=== PATIENT | male | born 2000 | race Hispanic/Latino ===

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

== ENCOUNTER 2018-01-09 16:19 | Emergency (ER) | payer SELFPAY ==
[2018-01-09] MEDS ORDERED: MAGNE/ALUM HYDROXD 30 ML UCUP ONE (17:00)
[2018-01-09] MEDS ORDERED: LIDOCAINE VISCOUS 2% SOLN 15 ML UDC ONE (17:01)
[2018-01-09] MEDS ORDERED: SUCRALFATE 1 GM TABLET ONE (17:20)
--- NOTE | 2018-01-09 17:32 | RAD REPORT ---
EXAM DESCRIPTION: Tushar Patel (2 Views)01/09/2018 5:25 pm CLINICAL HISTORY: Abdominal pain COMPARISON: 2017 FINDINGS: The lungs appear clear of acute infiltrate. The heart is normal size. Free air is not see n beneath the diaphragm . If patient has significant abdominal pain CT would be recommended IMPRESSION: No acute abnormalities displayed
--- NOTE | 2018-01-09 17:41 | ER ---
Nurse's Notes [facility] Name: Robert Womack Jr Age: 17 yrs Sex: Male : 2000 Arrival Date: 01/09/2018 Time: 16:23 Bed 18 Private MD: Diagnosis: Epigastric pain Presentation: 01/09 16:36 Presenting complaint: Patient states: LUQ pain that is worse when taking a deep breath, aj that started this AM. Denies fever. Transition of care: patient was not received from another setting of care. Onset of symptoms was January 09, 2018. Risk Assessment: Do you want to hurt yourself or someone else? Patient reports no desire to harm self or others. Initial Sepsis Screen: Does the patient meet any 2 criteria? No. Patient's initial sepsis screen is negative. Does the patient have a suspected source of infection? No. Patient's initial sepsis screen is negative. Care prior to arrival: None. 16:36 Method Of Arrival: Ambulatory aj 16:36 Acuity: KAT 4 aj Triage Assessment: 16:37 General: Appears in no apparent distress. comfortable, Behavior is calm, cooperative, aj appropriate for age. Pain: Complains of pain in left upper quadrant. Neuro: Level of Consciousness is awake, alert, obeys commands, Oriented to person, place, time, situation, Appropriate for age. Respiratory: Airway is patent Respiratory effort is even, unlabored, Respiratory pattern is regular, symmetrical. GI: Abdomen is flat, Reports upper abdominal pain. Derm: Skin is intact, is healthy with good turgor, Skin is pink, warm \T\ dry. normal. Musculoskeletal: Range of motion: intact in all extremities, Reports pain in left upper quadrant. Historical: - Allergies: 16:37 No Known Allergies; aj - Home Meds: 16:37 None [Active]; aj - PMHx: 16:37 None; aj - PSHx: 16:37 Appendectomy; aj - Immunization history:: Adult Immunizations up to date. - Social history:: Smoking status: Patient/guardian denies using tobacco. - Ebola Screening: : Patient negative for fever greater than or equal to 101.5 degrees Fahrenheit, and additional compatible Ebola Virus Disease symptoms Patient denies exposure to infectious person Patient denies travel to an Ebola-affected area in the 21 days before illness onset No symptoms or risks identified at this time. Screenin:45 Abuse screen: Denies threats or abuse. Denies injuries from another. Nutritional jl7 screening: No deficits noted. Tuberculosis screening: No symptoms or risk factors identified. Fall Risk None identified. Assessment: 16:45 General: Appears in no apparent distress. uncomfortable, Behavior is calm, cooperative, jl7 appropriate for age. Pain: Complains of pain in left upper quadrant Pain does not radiate. Pain currently is 8 out of 10 on a pain scale. Quality of pain is described as gnawing, Is continuous. Neuro: Level of Consciousness is awake, alert, obeys commands, Oriented to person, place, time, situation. Cardiovascular: Patient's skin is warm and dry. Respiratory: Airway is patent Respiratory effort is even, unlabored, Respiratory pattern is regular, symmetrical. GI: Abdomen is flat, non-distended, Stools are reported to be constipated. Bowel sounds present X 4 quads. Abd is soft X 4 quads Abd is non tender in right upper quadrant, right lower quadrant and left lower quadrant Abdomen is tender to palpation in left upper quadrant. : No signs and/or symptoms were reported regarding the genitourinary system. EENT: No signs and/or symptoms were reported regarding the EENT system. Derm: Skin is. Musculoskeletal: No signs and/or symptoms reported regarding the musculoskeletal system. 17:15 Reassessment: Pt reports slight decrease in pain, rated 6/10 at this time. jl7 Vital Signs: 16:37 BP 103 / 69; Pulse 84; Resp 19; Temp 98.6; Pulse Ox 99% on R/A; Weight 63.96 kg; Height aj 5 ft. 5 in. (165.10 cm); 17:48 BP 104 / 69; Pulse 83; Resp 16 S; Pulse Ox 99% on R/A; Pain 5/10; jl7 16:37 Body Mass Index 23.46 (63.96 kg, 165.10 cm) ED Course: 16:23 Patient arrived in ED. mr 16:29 Adela Fletcher FNP-C [facility]. snw 16:29 Lan Garcia MD is Attending Physician. snw 16:37 Triage completed. aj 16:37 Arm band placed on right wrist. Patient placed in an exam room. aj 16:41 Sethi, Jahala, RN is Primary Nurse. jl7 16:45 Patient has correct armband on for positive identification. Placed in gown. Bed in low jl7 position. Call light in reach. Side rails up X 1. Pulse ox on. NIBP on. 17:26 Chest Pa And Lat (2 Views) XRAY In Process Unspecified. EDMS 17:48 No provider procedures requiring assistance completed. Patient did not have IV access jl7 during this emergency room visit. Administered Medications: 16:58 Drug: GI Cocktail without - (Maalox Suspension 30 ml, Lidocaine Liquid 2 % 15 jl7 ml) Route: PO; 17:15 Follow up: Response: No adverse reaction; Pain is decreased jl7 17:14 Drug: CarafATE 1 grams Route: PO; jl7 17:48 Follow up: Response: No adverse reaction jl7 Outcome: 17:40 Discharge ordered by . snw 17:48 Discharged to home ambulatory. jl7 17:48 Condition: stable 17:48 Discharge instructions given to patient, Instructed on discharge instructions, follow up and referral plans. medication usage, Demonstrated understanding of instructions, follow-up care, medications, Prescriptions given X 1. 17:50 Patient left the ED. jl7 Signatures: Dispatcher [employer] EDCecy Brady RN RN Adela Patricia, UTILITY SPECIALIST-C UTILITY SPECIALIST-Maribel MartinaBatsheva Alem Sethi, RN RN jl7 Corrections: (The following items were deleted from the chart) 16:39 16:36 Presenting complaint: Patient states: LUQ pain that is worse when taking a deep aj breath, that started this AM. Patient also has non specific rash noted to trunk. Denies fever aj 16:39 16:36 Acuity: KAT 3 aj aj
--- NOTE | 2018-01-09 17:41 | EDPHYS ---
Physician Documentation [facility] Name: Robert Womack Jr Age: 17 yrs Sex: Male : 2000 Arrival Date: 01/09/2018 Time: 16:23 Bed 18 Private MD: ED Physician Lan Garcia HPI: 01/09 16:54 This 17 yrs old Male presents to ER via Ambulatory with complaints of snw Abdominal Pain. 16:54 The patient presents with abdominal pain in the epigastric area, in the upper abdomen, snw in the left upper quadrant. Onset: The symptoms/episode began/occurred suddenly, today. The symptoms do not radiate. Associated signs and symptoms: none. The symptoms are described as burning. Severity of pain: At its worst the pain was moderate. The patient has not experienced similar symptoms in the past. The patient has not recently seen a physician. pt ingests lots of caffeine, hot cheetos, denies ETOH, smoking. Historical: - Allergies: 16:37 No Known Allergies; aj - Home Meds: 16:37 None [Active]; aj - PMHx: 16:37 None; aj - PSHx: 16:37 Appendectomy; aj - Immunization history:: Adult Immunizations up to date. - Social history:: Smoking status: Patient/guardian denies using tobacco. - Ebola Screening: : Patient negative for fever greater than or equal to 101.5 degrees Fahrenheit, and additional compatible Ebola Virus Disease symptoms Patient denies exposure to infectious person Patient denies travel to an Ebola-affected area in the 21 days before illness onset No symptoms or risks identified at this time. ROS: 16:53 Constitutional: Negative for fever, chills, and weight loss, Eyes: Negative for injury, snw pain, redness, and discharge, ENT: Negative for injury, pain, and discharge, Neck: Negative for injury, pain, and swelling, Cardiovascular: Negative for chest pain, palpitations, and edema, Respiratory: Negative for shortness of breath, cough, wheezing, and pleuritic chest pain, Back: Negative for injury and pain, : Negative for injury, bleeding, discharge, and swelling, MS/Extremity: Negative for injury and deformity, Skin: Negative for injury, rash, and discoloration, Neuro: Negative for headache, weakness, numbness, tingling, and seizure. 16:53 Abdomen/GI: Positive for abdominal pain, burning. Exam: 16:53 Constitutional: This is a well developed, well nourished patient who is awake, alert, snw and in no acute distress. Head/Face: Normocephalic, atraumatic. Eyes: Pupils equal round and reactive to light, extra-ocular motions intact. Lids and lashes normal. Conjunctiva and sclera are non-icteric and not injected. Cornea within normal limits. Periorbital areas with no swelling, redness, or edema. ENT: Nares patent. No nasal discharge, no septal abnormalities noted. Tympanic membranes are normal and external auditory canals are clear. Oropharynx with no redness, swelling, or masses, exudates, or evidence of obstruction, uvula midline. Mucous membranes moist. Neck: Trachea midline, no thyromegaly or masses palpated, and no cervical lymphadenopathy. Supple, full range of motion without nuchal rigidity, or vertebral point tenderness. No Meningismus. Chest/axilla: Normal chest wall appearance and motion. Nontender with no deformity. No lesions are appreciated. Cardiovascular: Regular rate and rhythm with a normal S1 and S2. No gallops, murmurs, or rubs. Normal PMI, no JVD. No pulse deficits. Respiratory: Lungs have equal breath sounds bilaterally, clear to auscultation and percussion. No rales, rhonchi or wheezes noted. No increased work of breathing, no retractions or nasal flaring. Back: No spinal tenderness. No costovertebral tenderness. Full range of motion. Skin: Warm, dry with normal turgor. Normal color with no rashes, no lesions, and no evidence of cellulitis. MS/ Extremity: Pulses equal, no cyanosis. Neurovascular intact. Full, normal range of motion. Neuro: Awake and alert, GCS 15, oriented to person, place, time, and situation. Cranial nerves II-XII grossly intact. Motor strength 5/5 in all extremities. Sensory grossly intact. Cerebellar exam normal. Normal gait. Psych: Awake, alert, with orientation to person, place and time. Behavior, mood, and affect are within normal limits. 16:53 Abdomen/GI: Inspection: abdomen appears normal, Bowel sounds: normal, Palpation: moderate abdominal tenderness, in the epigastric area. Vital Signs: 16:37 BP 103 / 69; Pulse 84; Resp 19; Temp 98.6; Pulse Ox 99% on R/A; Weight 63.96 kg; Height aj 5 ft. 5 in. (165.10 cm); 17:48 BP 104 / 69; Pulse 83; Resp 16 S; Pulse Ox 99% on R/A; Pain 5/10; jl7 16:37 Body Mass Index 23.46 (63.96 kg, 165.10 cm) aj MDM: 16:53 Patient medically screened. snw 17:42 Data reviewed: vital signs, nurses notes. Data interpreted: Pulse oximetry: on room air snw is 99 %. Interpretation: normal. Counseling: I had a detailed discussion with the patient and/or guardian regarding: the historical points, exam findings, and any diagnostic results supporting the discharge/admit diagnosis, radiology results, the need for outpatient follow up, to return to the emergency department if symptoms worsen or persist or if there are any questions or concerns that arise at home. Special discussion: Based on the patient's Hx, exam, and Dx evaluation, there is no indication for emergent surgery or inpatient Tx. It is understood by the patient/guardian that if the Sx's persist or worsen they need to return immediately for re-evaluation. Based on the history and exam findings, there is no indication for further emergent testing or inpatient evaluation. I discussed with the patient/guardian the need to see the bank teller machine mechanic for further evaluation of the symptoms. I discussed with the patient/guardian the need to see the primary care provider for further evaluation of the symptoms. 01/09 16:52 Order name: Chest Pa And Lat (2 Views) XRAY; Complete Time: 17:35 snw Administered Medications: 16:58 Drug: GI Cocktail without - (Maalox Suspension 30 ml, Lidocaine Liquid 2 % 15 jl7 ml) Route: PO; 17:15 Follow up: Response: No adverse reaction; Pain is decreased jl7 17:14 Drug: CarafATE 1 grams Route: PO; jl7 17:48 Follow up: Response: No adverse reaction jl7 Disposition: 18:19 Co-signature as Attending Physician, Lan Garcia MD. rn Disposition: 01/09/18 17:40 Discharged to Home. Impression: Epigastric pain. - Condition is Stable. - Discharge Instructions: Abdominal Pain, Adult, Food Choices for Gastroesophageal Reflux Disease, Adult, Gastritis, Adult, Upper Endoscopy, Antlers Diet. - Prescriptions for Nexium 20 mg Oral Capsule - take 1 capsule by ORAL route once daily; 20 capsule. - Work release form, Medication Reconciliation Form, Thank You Letter, Antibiotic Education, Prescription Opioid Use form. - Follow up: Emergency Department; When: As needed; Reason: Worsening of condition. Follow up: Private Physician; When: 2 - 3 days; Reason: Continuance of care. Signatures: Dispatcher [employer] Cecy Haq RN RN aj Therrien, Shelly, BABY REGISTRY SALES CONSULTANT-C BABY REGISTRY SALES CONSULTANT-[employer] Lan Garcia MD MD rn Leal, Jahala, RN RN jl7 Corrections: (The following items were deleted from the chart) 17:50 17:40 01/09/2018 17:40 Discharged to Home. Impression: Epigastric pain. Condition is jl7 Stable. Forms are Medication Reconciliation Form, Thank You Letter, Antibiotic Education, Prescription Opioid Use. Follow up: Emergency Department; When: As needed; Reason: Worsening of condition. Follow up: Private Physician; When: 2 - 3 days; Reason: Continuance of care. snw
== END 2018-01-09 17:50 | disposition home or self-care (01) ==
LOC: ER 16:19
DX: R10.13 Epigastric pain (principal)
CPT/HCPCS: 71046; 99284